=== PATIENT | male | born 1980 | race Caucasian/White ===

== ENCOUNTER 2023-06-08 14:04 | Outpatient (REF) | payer OTHER, SELFPAY ==
[2023-06-08 14:23] LABS: MANUAL DIFF FLAG NO
[2023-06-08 15:05] LABS: Basophils Absolute Auto 0.1 X10*3/uL (0.0-0.2); Basophils Percent Auto 1.2 % (0-2); Eosinophils Percent Auto 0.6 % (0-4); Hematocrit 43.7 % (42.0-52.0); Hemoglobin 14.5 g/dl (14.0-18.0); Imm Gran Abs Auto 0.01 X10*3/uL (0.00-0.03); Imm Gran Pct Auto 0.2 % (0.0-0.4); Lymphocytes Absolute Auto 1.4 X10*3/uL (1.2-4.9); Lymphocytes Percent Auto 20.7 % (20-40); Mean Corpuscular HGB Conc 33.2 g/dl (31.0-36.0); Mean Corpuscular Hemoglobin 29.8 pg (27.0-33.0); Mean Corpuscular Volume 89.9 fL (80.0-98.0); Mean Platelet Volume 10.9 fL (9.4-12.4); Monocytes Absolute Auto 0.4 X10*3/uL (0.1-1.2); Neutrophils Absolute Auto 4.6 x10*3/uL (2.0-8.3); Neutrophils Percent Auto 71.3 % (45-73); Platelet Count 218 X10*3/uL (160-400); Red Blood Count 4.86 X10*6/uL (4.60-5.80); Red Cell Distribution Width 12.6 % (11.0-16.0); White Blood Count 6.5 X10*3/uL (4.8-10.8)
[2023-06-08 15:53] LABS: Alanine Aminotransferase 35 U/L (0-40); Albumin Level 4.3 g/dL (3.5-5.0); Alkaline Phosphatase 57 U/L (39-117); Anion Gap 11 (12-20); Aspartate Amino Transferase 25 U/L (5-37); Bilirubin Total 0.3 mg/dL (0.0-1.0); Blood Urea Nitrogen 12 mg/dL (9-16); Calcium 9.3 mg/dL (8.4-10.2); Carbon Dioxide 30 mmol/L (22-29); Chloride 104 mmol/L (96-108); Estimated Glomerular Filt Rate > 60; Glucose Random 107 mg/dL (60-115); Potassium 3.9 mmol/L (3.3-5.1); Sodium 141 mmol/L (135-145); Total Protein 6.8 g/dL (6.5-8.0)
[2023-06-08 16:08] LABS: TSH reflex Free T4 0.72 uIU/mL (0.32-4.0)
[2023-06-08 17:16] LABS: CT PCR NOT DETECTED (Not Detect.); NG PCR NOT DETECTED (Not Detect.)
[2023-06-09 08:01] LABS: Syphilis Screen Nonreactive (Nonreactive)
[2023-06-09 08:16] LABS: HBS Num1 46.82 mIU/mL (0-7.99); HBc Num1 0.07 S/CO (0.00-0.79); HBsAGNum1 0.43 S/CO (0.00-0.99); HIV AB/AG Nonreactive (Nonreactive); HIV Num 1 0.06 S/CO (0.00-0.99); Hepatitis B Core Antibody Nonreactive (Nonreactive); Hepatitis B Surface Antigen Negative (Negative); ~HepC Num1 0.09 S/CO (0.00-0.79); ~Hepatitis B Surface Antibody REACTIVE (Nonreactive); ~Hepatitis C Antibody Nonreactive (Nonreactive)
== END 2023-06-08 14:05 | disposition home or self-care (01) ==
LOC: HO.LAB 14:04
PROVIDERS: Visit Provider Psychiatry & Neurology Psychiatry
DX: F33.2 Major depressive disorder, recurrent severe without psychotic features (principal)
CPT/HCPCS: 0353U; 80053; 84443; 85025; 86704; 86706; 86780; 86803; 87340; 87389

== ENCOUNTER → 2023-06-09 10:45 | Outpatient (BNV) | payer OTHER, SELFPAY | PROVIDERS: Visit Provider Psychiatry & Neurology Psychiatry | DX: F33.2 Major depressive disorder, recurrent severe without psychotic features (principal); F43.10 Post-traumatic stress disorder, unspecified; F12.10 Cannabis abuse, uncomplicated; F10.11 Alcohol abuse, in remission | CPT/HCPCS: 90792; 99213 ==

== ENCOUNTER 2023-06-15 10:30 | Outpatient (RCR) | payer OTHER, SELFPAY ==
[2023-05-30 12:52] VITALS: BP 118/58; PULSE 76; TEMP 37.1
[2023-05-30 12:55] VITALS: BMI 19.1
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
--- NOTE | 2023-06-01 17:39 | PHP/IOPCOSI ---
Mitchell?s treatment plan was reviewed by the [facility] clinical staff. Their case has been opened and reviewed.
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
--- NOTE | 2023-06-09 23:56 | HO.PHPPROGNO ---
Subjective Subjective Date of Service: 06/09/23 Reason For Visit: PTSD Interim History: Reports his week is going ok. Yesterday was reportedly difficult emotionally, working through trauma and depression, years of feeling invalidated. He maintains optimistic outlook feel like I'm on the verge of a break through... approaching a point where things should be getting easier . Mood is still depressed, but feels he is making progress in group therapy. Endorses some sleep issues, some nights are fine, other nights has disrupted sleep. He couldn't fall asleep last night until 4am. Overthinking and ruminating. He did not take his trazodone. He will hold off taking it unless he is in a pattern of poor sleep (regularly going to bed late/waking late). Then he will take trazodone for a week to reset his sleep. He continues to be reluctant to engage in psychotropic treatment for depression, anxiety, PTSD. He quit his job which he feels good about, he will be using a downpayment on a house which he had been saving in order support himself as he searches for a new job. He denies any thoughts of harming self or others. Appetite and energy are fair, stable. Denies any illicit substances or alcohol use. Medication Compliance: Yes Side effects from medications: No Attending Groups: Yes Review of Systems Acute medical concerns: No Mental Status Exam Mental Status Exam Narrative: Alert, oriented, in no acute distress. Tall stature, thin build, long goatee kovacs. Calm, cooperative, engaged. No psychomotor?agitation or neurovegetative retardation. Eye contact maintained. Mood depressed, affect constricted. Speech normal. Thought process linear, coherent. Thought content related to stressors, transient hopelessness, denies SI or HI. No paranoia or delusional content elicited. No evidence of psychosis. Insight and judgment impaired. Diagnostics Vital Signs (24Hr): BMI result Body Mass Index 19.1 Assessment & Plan Assessment & Plan (1) Major depressive disorder, recurrent, severe without psychotic features: Status: Acute Code(s): F33.2 - Major depressive disorder, recurrent severe without psychotic features (2) Complex posttraumatic stress disorder: Status: Acute Code(s): F43.10 - Post-traumatic stress disorder, unspecified (3) Alcohol abuse, in remission: Status: Acute Code(s): F10.11 - Alcohol abuse, in remission (4) Cannabis abuse: Status: Acute Code(s): F12.10 - Cannabis abuse, uncomplicated Plan No medications as per patient preference However treatment rationale was reviewed and potential medication options were reviewed continue to follow up as per protocol Patient educated on: diagnosis, medication risk/benefits and substance abuse Informed Consent: understands Reason for contiued partial hosp. stay Substantial Risk for: inability to function, rapid decompensation and med/psych decompensation Certification I certify that partial hospital treatment is medically necessary due to the symptoms and problems resulting from the patient's mental illness and the failure to treat the patient at the partial hospital level of care would likely result in the patient requiring inpatient psychiatric care which could not be prevented at a less intensive level of care. Total time managing care of this patient today __30__ minutes. Discharge Plan Discharge Attending provider: Corin Gayle Medications: Continued trazodone 50 mg Tablet See Rx Instructions .ROUTE .COMPLEX PRN (Reason: Insomnia) Rx Instructions: Take 1/2 tab at bedtime and one tab as needed for insomnia.
--- NOTE | 2023-06-15 17:54 | HO.PHPPROGNO ---
Subjective Subjective Date of Service: 06/15/23 Reason For Visit: PTSD Interim History: Patient seen for follow-up, anticipating discharge at the end of program today.? Patient reports that the program had been helpful until the recent discharge of a number of his peers, which lead to a shift in the dynamic and expresses feeling that he wont be able to engage as effectively with new patient starting. Says it is difficult to adjust to these changes with only one day left and so prefers to discharge at the end of the day today. Overall he feels he gained a lot from his time here definitely helpful - good connecting with the people I met here . His plan is to follow up more frequently with Ahsan, whom he has been working with effectively for the past 3 or 4 years through the [facility]. His next appointment is MondayJun 23. We had previously explored treatment options, specifically mirtazapine given the degree his appetite and sleep are impacted by the depression and anxiety, with weight loss of 20+ lbs in past months. Patient had been reluctant to start on medication, but today says he will discuss starting the mirtazapine with his new provider. I offer to start presently but he says he is ok with waiting until his intake appointment. Sleep is alright getting 4-6 hours, and occasionally uses trazodone. There have been some modest improvements in appetite, he manages 2 meals most days. Appetite still only fair. Reports no acute issues or concerns. Medication compliant, medications well-tolerated. Denies any adverse effects.? Mood is stable.? Denies any hopelessness or SI. Denies thoughts of harming self or others at this time. Denies any aggressive ideation or HI. Denies any paranoia or AH or VH. Sleep, appetite, energy stable Attending Groups: Yes Review of Systems Acute medical concerns: No Mental Status Exam Mental Status Exam Narrative: Alert, oriented, in no acute distress. Tall stature, thin build, long goatee kovacs. Calm, cooperative, engaged. No psychomotor?agitation or neurovegetative retardation. Eye contact maintained. Mood dysthymic, affect constricted. Speech normal. Thought process linear, coherent. Thought content related to stressors, future-oriented, denies SI, intent or plan. Denies AI or HI. No paranoia or delusional content elicited. No evidence of psychosis. Insight and judgment fair but adequate. Diagnostics Vital Signs (24Hr): BMI result Body Mass Index 19.1 Assessment & Plan Assessment & Plan (1) Major depressive disorder, recurrent, severe without psychotic features: Status: Acute Code(s): F33.2 - Major depressive disorder, recurrent severe without psychotic features (2) Complex posttraumatic stress disorder: Status: Acute Code(s): F43.10 - Post-traumatic stress disorder, unspecified (3) Cannabis abuse: Status: Acute Code(s): F12.10 - Cannabis abuse, uncomplicated (4) Alcohol abuse, in remission: Status: Acute Code(s): F10.11 - Alcohol abuse, in remission Plan . [facility]charge from [facility] continue regular medications - PRN trazodone no new medication/treatment started as per patient preference will defer further medication management to outpatient provider Refills sent to pharmacy Patient educated on: diagnosis, medication risk/benefits and substance abuse Informed Consent: understands Reason for contiued partial hosp. stay Substantial Risk for: stable for discharge Certification I certify that partial hospital treatment is medically necessary due to the symptoms and problems resulting from the patient's mental illness and the failure to treat the patient at the partial hospital level of care would likely result in the patient requiring inpatient psychiatric care which could not be prevented at a less intensive level of care. Total time managing care of this patient today _30___ minutes. Discharge Plan Discharge Attending provider: Corin Gayle Medications: Continued trazodone 50 mg Tablet See Rx Instructions .ROUTE .COMPLEX PRN (Reason: Insomnia) Rx Instructions: Take 1/2 tab at bedtime and one tab as needed for insomnia. Stand Alone Forms: Patient Portal Discharge page Patient Education: Depression (DC), Post Traumatic Stress Disorder (DC)
== END 2023-06-15 23:59 | disposition home or self-care (01) ==
LOC: HO.PHPA 10:30
PROVIDERS: Visit Provider Psychiatry & Neurology Psychiatry
DX: F43.10 Post-traumatic stress disorder, unspecified (principal); F33.2 Major depressive disorder, recurrent severe without psychotic features; F10.11 Alcohol abuse, in remission; F12.10 Cannabis abuse, uncomplicated
CPT/HCPCS: 90791; 90853